=== PATIENT | female | born 1940 | race Caucasian/White ===

== ENCOUNTER → 2017-04-03 | Outpatient (CLI) | payer MEDICARE, OTHER | END | disposition home or self-care (01) | LOC: CFH 08:15 | PROVIDERS: ATTEND Internal Medicine Cardiovascular Disease | DX: I25.9 Chronic ischemic heart disease, unspecified (principal); I10 Essential (primary) hypertension | CPT/HCPCS: 78452; 93017; A9502 ==

== ENCOUNTER → 2017-06-08 | Outpatient (CLI) | payer MEDICARE, OTHER | END | disposition home or self-care (01) | LOC: CFH 09:55 | PROVIDERS: ATTEND Internal Medicine Cardiovascular Disease | DX: Z13.6 Encounter for screening for cardiovascular disorders (principal); I25.10 Atherosclerotic heart disease of native coronary artery without angina pectoris; Z82.49 Family history of ischemic heart disease and other diseases of the circulatory system | CPT/HCPCS: 75571 ==

== ENCOUNTER 2018-08-20 12:40 | Emergency (ER) | payer MEDICARE, OTHER ==
[~2018-08-20] VITALS: Ht 157.5 cm; Wt 52.0 kg
[2018-08-20] MEDS ORDERED: SODIUM CHLORIDE 0.9% 1,000ML IVBOLUS ONE ×2 (13:30→16:00)
[2018-08-20] MEDS ORDERED: PLEASE ENTER HEIGHT AND WEIGHT MC SCH (13:30)
[2018-08-20] MEDS ORDERED: SODIUM CHLORIDE FLUSH 10ML SYR IVF ONE (13:30)
[2018-08-20] MEDS ORDERED: PLEASE ENTER ALLERGIES MC SCH (13:30)
[2018-08-20 13:50] LABS: ALANINE AMINOTRANSFERASE 17 U/L (12-78); ALBUMIN 2.4 g/dL (3.4-5.0); ANION GAP 11 mmol/L (5-15); BASOPHILS # (AUTO) 0.05 x10^3/uL (0-0.1); BASOPHILS % (AUTO) 1 % (0-1); CALCIUM 8.4 mg/dL (8.5-10.1); CHLORIDE 107 mmol/L (98-107); CREATININE 1.05 mg/dL (0.55-1.02); EOSINOPHILS # (AUTO) 0.21 x10^3/uL (0-0.4); EOSINOPHILS % (AUTO) 2 % (1-7); LYMPHOCYTES # (AUTO) 1.46 x10^3/uL (1-3.4); LYMPHOCYTES % (AUTO) 13 % (22-44); MD NO; MEAN CORPUSCULAR HEMOGLOBIN 30.8 pg (27.0-34.8); MEAN CORPUSCULAR HGB CONC 33.2 g/dL (32.4-35.8); MEAN CORPUSCULAR VOLUME 92.8 fL (80-100); MEAN PLATELET VOLUME 8.7 fL (7.4-10.4); MONOCYTES # (AUTO) 0.75 x10^3/uL (0.2-0.8); MONOCYTES % (AUTO) 7 % (2-9); NEUTROPHILS # (AUTO) 8.87 x10^3/uL (1.8-6.8); NEUTROPHILS % (AUTO) 78 % (42-75); PLATELET COUNT 361 x10^3/uL (130-400); RED BLOOD COUNT 3.53 x10^6/uL (3.82-5.3); RED CELL DISTRIBUTION WIDTH 14.2 % (9.6-15.2)
[2018-08-20 13:54] LABS: ALKALINE PHOSPHATASE 87 U/L (45-117); BILIRUBIN,TOTAL 0.4 mg/dL (0.2-1.0); FREE T4 (FREE THYROXINE) 1.41 ng/dL (0.76-1.46); TOTAL PROTEIN 5.3 g/dL (6.4-8.2); TROPONIN I < 0.015 ng/mL (0.000-0.045)
[2018-08-20] MEDS ORDERED: potassium PO (15:14)
[2018-08-20] MEDS ORDERED: METO25TA2 PO (15:14)
[2018-08-20] MEDS ORDERED: MULT-257 PO (15:14)
[2018-08-20] MEDS ORDERED: ASPI-621 PO (15:14)
[2018-08-20] MEDS ORDERED: LISI5TAB PO (15:14)
[2018-08-20] MEDS ORDERED: LEVO50TA5 PO (15:14)
[2018-08-20] MEDS ORDERED: HYDR12.547 PO (15:14)
[2018-08-20 16:43] VITALS: BP 112/62
== END 2018-08-20 17:18 | disposition home or self-care (01) ==
LOC: ED 17:00
DX: E86.0 Dehydration (principal); R42 Dizziness and giddiness; I10 Essential (primary) hypertension; I34.1 Nonrheumatic mitral (valve) prolapse
CPT/HCPCS: 36415; 80053; 84439; 84443; 84484; 85025; 96360; 96361; 99285; J7030

== ENCOUNTER → 2019-01-24 | Outpatient (CLI) | payer MEDICARE, OTHER ==
[~2019-01-24] MED LIST: ASPI81TA45 PO; HYDR12.547 PO; LEVO50TA5 PO; LISI5TAB PO; METO25TA2 PO; MULT-257 PO; potassium PO
== END | disposition home or self-care (01) ==
LOC: CFH 10:32
PROVIDERS: ATTEND Internal Medicine Cardiovascular Disease
DX: I08.3 Combined rheumatic disorders of mitral, aortic and tricuspid valves (principal); I42.9 Cardiomyopathy, unspecified; I10 Essential (primary) hypertension; Z85.43 Personal history of malignant neoplasm of ovary
CPT/HCPCS: 93306

== ENCOUNTER 2019-06-23 19:13 | Inpatient (IN) | payer MEDICARE, OTHER ==
[~2019-06-23] VITALS: Ht 157.5 cm; Wt 58.3 kg
[2019-06-23] MEDS ORDERED: ONDANSETRON 2MG/ML, 2ML IVPush ONE (20:00)
[2019-06-23] MEDS ORDERED: ONDANSETRON 2MG/ML, 2ML ONE (20:25)
[2019-06-23 20:30] LABS: MEAN CORPUSCULAR HEMOGLOBIN 30.6 pg (27.0-34.8); MEAN CORPUSCULAR VOLUME 95.4 fL (80-100); MEAN PLATELET VOLUME 8.9 fL (7.4-10.4); PLATELET COUNT 325 x10^3/uL (130-400); RED BLOOD COUNT 3.85 x10^6/uL (3.82-5.3); RED CELL DISTRIBUTION WIDTH 14.6 % (9.6-15.2)
[2019-06-23] MEDS ORDERED: SODIUM CHLORIDE 0.9% 1,000ML IVBOLUS ONE (20:30)
[2019-06-23] MEDS ORDERED: SODIUM CHLORIDE FLUSH 10ML SYR IVF ONE (20:30)
[2019-06-23 20:35] LABS: ALANINE AMINOTRANSFERASE 23 U/L (12-78); ALBUMIN 2.7 g/dL (3.4-5.0); ANION GAP 9 mmol/L (5-15); CALCIUM 9.5 mg/dL (8.5-10.1); CHLORIDE 99 mmol/L (98-107); CREATININE 1.14 mg/dL (0.55-1.02)
[2019-06-23 20:37] LABS: ALKALINE PHOSPHATASE 98 U/L (45-117); TOTAL PROTEIN 6.2 g/dL (6.4-8.2)
[2019-06-23 20:44] LABS: MD YES
--- NOTE | 2019-06-23 20:45 | NUR ---
PT A&OX4, RESP EVEN & UNLBORED, SPEECH CLEAR, SKIN WNL. PT STATES SHE'S HAD NAUSEA 7 VOMITING SINCE Thursday06/21/19. LAST FOOD INTAKE: THURSDAY. HAS BEEN SIPPING WATER. C/O GENERALIZED ABD PAIN. PT'S FRIEND IN ROOM.
[2019-06-23 20:47] LABS: ANISOCYTOSIS 1+; BAND#(MANUAL) 0.08 x10^3/uL; BANDS%(MANUAL) 1 % (0-7); LYMPH#(MANUAL) 1.34 x10^3/uL (1-3.4); LYMPHS% (MANUAL) 17 % (22-44); MONOS#(MANUAL) 0.55 x10^3/uL (0.3-2.7); MONOS% (MANUAL) 7 % (2-9); NRBC % (MANUAL) 3 % (0-1); POLYCHROMASIA 1+; SEG#(MANUAL) 5.93 x10^3/uL (1.8-6.8); SEGS% (MANUAL) 75 % (42-75)
[2019-06-23 20:49] LABS: HOWELL-JOLLY BODIES 1+
[2019-06-23 20:50] LABS: <PLATELET ESTIMATE> ADEQUATE; <PLT MORPHOLOGY> NORMAL PLT MORPH
--- NOTE | 2019-06-23 21:00 | NUR ---
ZOFRAN GIVEN PER EMAR
[2019-06-23] MEDS ORDERED: LISI1TAB19 PO (21:10)
[2019-06-23] MEDS ORDERED: OLAP150T PO (21:10)
[2019-06-23] MEDS ORDERED: VITAMIN D (21:10)
--- NOTE | 2019-06-23 22:10 | NUR ---
AMBULATORY TO & FROM [facility] W/OUT INCIDENT; GAIT STEADY.
[2019-06-23 22:50] LABS: MICROSCOPIC AUTO
--- NOTE | 2019-06-23 22:57 | NUR ---
PT REPORT TO DOMENICA MUSA FOR ROOM 348. PT NEEDS NG AND FOLLOW-UP XR PRIOR TO TRANSPORT TO FLOOR.
[2019-06-23 23:08] LABS: CULTURE INDICATED? NO
--- NOTE | 2019-06-23 23:27 | NUR ---
PT REPORT TO DOMENICA CLAUDIO. PT CARE TRANSFERRED.
[2019-06-24] MEDS ORDERED: morphine SULFATE 10 MG/ML, 1ML IVPush PRN (00:30)
[2019-06-24 00:36] VITALS: BP 117/76
[2019-06-24] MEDS: D5%-0.45NACL+KCL 20MEQ 1,000 ML IV SCH ×3 (01:35→20:02)
[2019-06-24 04:47] VITALS: BP 102/66
[2019-06-24 08:02] VITALS: BP 105/67
[2019-06-24] MEDS ORDERED: FAMOTIDINE 20 MG/2 ML IVPush SCH (09:00)
[2019-06-24 14:00] VITALS: BP 121/73
[2019-06-24 18:38] VITALS: BP 114/73
[2019-06-25 01:05] VITALS: BP 126/73
[2019-06-25] MEDS: D5%-0.45NACL+KCL 20MEQ 1,000 ML IV SCH ×2 (02:42→10:29)
[2019-06-25 04:50] LABS: ALBUMIN 2.3 g/dL (3.4-5.0); ANION GAP 4 mmol/L (5-15); CHLORIDE 108 mmol/L (98-107)
[2019-06-25 04:54] LABS: ALANINE AMINOTRANSFERASE 18 U/L (12-78); ALKALINE PHOSPHATASE 79 U/L (45-117); BILIRUBIN,TOTAL 0.8 mg/dL (0.2-1.0); CREATININE 0.89 mg/dL (0.55-1.02); TOTAL PROTEIN 5.2 g/dL (6.4-8.2)
[2019-06-25 05:00] LABS: MEAN CORPUSCULAR HEMOGLOBIN 32.1 pg (27.0-34.8); MEAN CORPUSCULAR HGB CONC 33.1 g/dL (32.4-35.8); MEAN CORPUSCULAR VOLUME 97.1 fL (80-100); MEAN PLATELET VOLUME 9.2 fL (7.4-10.4); PLATELET COUNT 278 x10^3/uL (130-400); RED BLOOD COUNT 3.23 x10^6/uL (3.82-5.3); RED CELL DISTRIBUTION WIDTH 15.3 % (9.6-15.2)
[2019-06-25 06:20] LABS: MD YES
[2019-06-25 06:23] LABS: BAND#(MANUAL) 0.06 x10^3/uL; BANDS%(MANUAL) 1 % (0-7); LYMPH#(MANUAL) 0.77 x10^3/uL (1-3.4); LYMPHS% (MANUAL) 13 % (22-44); MONOS#(MANUAL) 0.71 x10^3/uL (0.3-2.7); MONOS% (MANUAL) 12 % (2-9); NRBC % (MANUAL) 8 % (0-1); SEG#(MANUAL) 4.37 x10^3/uL (1.8-6.8); SEGS% (MANUAL) 74 % (42-75)
[2019-06-25 06:25] LABS: ANISOCYTOSIS 1+; OVALOCYTES 1+; POLYCHROMASIA 1+
[2019-06-25 06:26] LABS: <PLATELET ESTIMATE> ADEQUATE; <PLT MORPHOLOGY> NORMAL PLT MORPH; ECHINOCYTES 1+
[2019-06-25 06:51] LABS: MEAN CORPUSCULAR HEMOGLOBIN 31.7 pg (27.0-34.8); MEAN CORPUSCULAR HGB CONC 32.5 g/dL (32.4-35.8); MEAN CORPUSCULAR VOLUME 97.5 fL (80-100); MEAN PLATELET VOLUME 8.8 fL (7.4-10.4); PLATELET COUNT 278 x10^3/uL (130-400); RED BLOOD COUNT 3.44 x10^6/uL (3.82-5.3)
[2019-06-25 06:52] LABS: MD YES
[2019-06-25 07:02] LABS: EOS#(MANUAL) 0.12 x10^3/uL (0.0-0.4); EOS% (MANUAL) 2 % (1-7); LYMPH#(MANUAL) 1.38 x10^3/uL (1-3.4); LYMPHS% (MANUAL) 23 % (22-44); MONOS#(MANUAL) 0.18 x10^3/uL (0.3-2.7); MONOS% (MANUAL) 3 % (2-9); MYELOCYTES# (MANUAL) 0.06 x10^3/uL (0-0); MYELOCYTES% (MANUAL) 1 % (0-0); NRBC % (MANUAL) 7 % (0-1); SEG#(MANUAL) 4.26 x10^3/uL (1.8-6.8); SEGS% (MANUAL) 71 % (42-75)
[2019-06-25 07:03] LABS: ANISOCYTOSIS 1+; OVALOCYTES 1+; POLYCHROMASIA 1+
[2019-06-25 07:05] LABS: HOWELL-JOLLY BODIES 1+; SCHISTOCYTES 1+; TARGET CELLS 1+
[2019-06-25 07:06] LABS: <PLATELET ESTIMATE> ADEQUATE; <PLT MORPHOLOGY> NORMAL PLT MORPH
[2019-06-25 07:46] VITALS: BP 117/75
[2019-06-25] MEDS: FAMOTIDINE 20 MG/2 ML IVPush SCH (10:02)
[2019-06-25 13:55] VITALS: BP 150/82
[2019-06-25 19:35] VITALS: BP 134/76
[2019-06-26 01:22] VITALS: BP 129/81
[2019-06-26] MEDS: D5%-0.45NACL+KCL 20MEQ 1,000 ML IV SCH ×3 (01:23→18:18)
[2019-06-26 08:03] VITALS: BP 119/76
[2019-06-26] MEDS: FAMOTIDINE 20 MG/2 ML IVPush SCH (09:11)
[2019-06-26 13:56] VITALS: BP 111/61
[2019-06-26 18:55] VITALS: BP 121/78
[2019-06-27 02:08] VITALS: BP 129/83
[2019-06-27] MEDS: D5%-0.45NACL+KCL 20MEQ 1,000 ML IV SCH (03:48)
[2019-06-27] MEDS ORDERED: ASPIRIN 81 MG TABLET EC PO SCH (06:00)
[2019-06-27] MEDS ORDERED: LEVOTHYROXINE 50 MCG TABLET PO SCH (06:00)
[2019-06-27 07:29] VITALS: BP 133/78
[2019-06-27] MEDS: FAMOTIDINE 20 MG/2 ML IVPush SCH (09:00)
[2019-06-27] MEDS ORDERED: MULTIVITAMIN 1 TABLET PO SCH (09:00)
[2019-06-27] MEDS ORDERED: HYDROCHLOROTHIAZIDE 12.5 MG CAPSULE PO SCH (09:00)
[2019-06-27] MEDS ORDERED: LISINOPRIL 20 MG TABLET PO SCH (09:00)
[2019-06-27 12:04] LABS: ANION GAP 5 mmol/L (5-15); CALCIUM 8.9 mg/dL (8.5-10.1); CHLORIDE 115 mmol/L (98-107); CREATININE 0.84 mg/dL (0.55-1.02)
[2019-06-27 12:07] LABS: MEAN CORPUSCULAR HEMOGLOBIN 30.9 pg (27.0-34.8); MEAN CORPUSCULAR HGB CONC 31.9 g/dL (32.4-35.8); MEAN CORPUSCULAR VOLUME 96.8 fL (80-100); MEAN PLATELET VOLUME 9.1 fL (7.4-10.4); PLATELET COUNT 297 x10^3/uL (130-400); RED BLOOD COUNT 3.55 x10^6/uL (3.82-5.3)
[2019-06-27 12:22] LABS: MD YES
[2019-06-27 12:25] LABS: ACANTHOCYTES 1+; ANISOCYTOSIS 1+; EOS#(MANUAL) 0.05 x10^3/uL (0.0-0.4); EOS% (MANUAL) 1 % (1-7); LYMPH#(MANUAL) 1.73 x10^3/uL (1-3.4); LYMPHS% (MANUAL) 32 % (22-44); METAMYELOCYTES# (MANUAL) 0.05 x10^3/uL (0-0); METAMYELOCYTES% (MANUAL) 1 % (0-1); MONOS#(MANUAL) 0.16 x10^3/uL (0.3-2.7); MONOS% (MANUAL) 3 % (2-9); OVALOCYTES 1+; POLYCHROMASIA 1+; SEGS% (MANUAL) 63 % (42-75)
[2019-06-27 12:26] LABS: <PLATELET ESTIMATE> ADEQUATE; <PLT MORPHOLOGY> NORMAL PLT MORPH; HOWELL-JOLLY BODIES 1+; SCHISTOCYTES 1+; TARGET CELLS 1+
[2019-06-27 13:23] VITALS: BP 134/81
== END 2019-06-27 15:10 | disposition home or self-care (01) | DRG 683 ==
LOC: ED 21:42 → EDIP 22:29 → 3NW 06-24 00:42 → DCLOUNGE 06-27 15:00
PROVIDERS: ADMIT Specialist; ATTEND Specialist
DX: N17.9 Acute kidney failure, unspecified (principal); K56.600 Partial intestinal obstruction, unspecified as to cause; E86.0 Dehydration; I10 Essential (primary) hypertension; I34.1 Nonrheumatic mitral (valve) prolapse; Z85.72 Personal history of non-Hodgkin lymphomas; Z90.710 Acquired absence of both cervix and uterus; Z85.43 Personal history of malignant neoplasm of ovary
CPT/HCPCS: 36415; 74018; 74022; 74177; 80048; 80053; 81001; 83690; 85025; 93005; 96374; G0378; J2405; J3480; J3490; J7030

== ENCOUNTER 2020-01-30 09:45 | Outpatient (CLI) | payer MEDICARE, OTHER ==
[~2020-01-30 09:45] MED LIST changes: +LISI1TAB19 PO; +OLAP150T PO; +VITAMIN D
== END 2020-02-06 11:21 | disposition home or self-care (01) ==
LOC: CFH 09:45
PROVIDERS: ATTEND Internal Medicine Cardiovascular Disease
DX: I08.3 Combined rheumatic disorders of mitral, aortic and tricuspid valves (principal)
CPT/HCPCS: 93306

== ENCOUNTER → 2021-01-30 | Outpatient (CLI) | payer MEDICARE, OTHER ==
[~2021-01-30] MED LIST changes: -LISI1TAB19 PO; +LISI1TAB39 PO
== END | disposition home or self-care (01) ==
LOC: CFH 12:50
PROVIDERS: ATTEND Internal Medicine Cardiovascular Disease
DX: I08.8 Other rheumatic multiple valve diseases (principal); I10 Essential (primary) hypertension; Z85.43 Personal history of malignant neoplasm of ovary
CPT/HCPCS: 93306

== ENCOUNTER → 2021-05-17 | Outpatient (CLI) | payer MEDICARE, OTHER | END | disposition home or self-care (01) | LOC: CFH 11:05 | PROVIDERS: ATTEND Internal Medicine | DX: M81.0 Age-related osteoporosis without current pathological fracture (principal) | CPT/HCPCS: 77080 ==